=== PATIENT | female | born 1950 | race Caucasian/White ===

== ENCOUNTER 2023-01-14 09:30 | Outpatient (RCR) | payer MEDICARE, SELFPAY ==
--- NOTE | 2022-11-06 08:57 | HP.PTEVAL ---
Patient's Visit Information JENNIFER MELLO is a 72 year old F referred to Physical Therapy by ANOOP SINCLAIR with a diagnosis of CVA. Date of Evaluation: 11/05/22 Physical Therapist: Manjula Mejia DPT - Visit Plan Frequency: 2-3x /Week Duration: 4 Weeks Plan: Focus on functional mobility- ambulation, stairs and balance. LE and core strength/stabilization - Subjective Patient reports that she was fully I- drives a school bus and horses and she had a CVA Oct 06, 2022- Lives in [place]- called 911- spent a few days and then they sent her to a rehab hospital for 2.5 weeks and then they released her and is now living with daughter in [place] for rehab. Her daughter and her 6 kids who are little normally live with her and it was much too to go home too so she came here. Goal is to get back home- she sleeps in the basement with a single HR. Current residence 2 steps into the home but first floor set up. She is using a platform walker- she continues to make progress. She has the most issues with her right arm and leg- she has no pain. She has had a fall in the last week getting out of the shower- she did not hit her head but has a bruise on her right shoulder and hip. No N/T but just feels weak. She was in a rehab for 3 hours a day- PMHX: left TKR 2 years ago Meds: aspirin, atorvastatin, clopradogel, cyanocobalamin, lisopril, multivit - Objective Posture: FH, RS can correct but does not maintain. Gait: Walking into clinic with right platform walker and AFO on the right LE- she has decreased stance on the right LE. Ambulation with a FWW no change in gait pattern- Without AFO she is able to ambulate 50 feet without catching her toe. As she fatigues she has decreased step length and her foot drop increases. Stairs: asc/desc 8 with bilateral HR and CGA for safety. Transfers: performs all without assistance. HR/TR: able in sitting. ROM: WFL in all planes of the LE. Strength: Core: fair, Left: Hip: 4+/5, Knee: 5/5 Ankle: 5/5 Right: Hip: flexion: 4/5, Abd: 4/5, Add: 4+/5, IR/ER: 4/5, Extn: 4/5, Knee: 4+/5, Ankle: 3+/5. Flex: HS: moderate, Gastroc: moderate - Balance/Special Test Scores Functional Gait Assessment Score: 14 % Disability: 53.3400 Lower Extremity Functional Score: 10 TUG Test Time Seconds: 15 - Goals Goal 1:: Patient will be I with HEP and progression Goal Time Frame: 4-6 Weeks Goal 2:: Patient will ambulate >300 feet with LRD mod I Goal Time Frame: 4-6 Weeks Goal 3:: Patient will asc/desc 8 stairs recip with 1 HR Indep Goal Time Frame: 4-6 Weeks Goal 4:: Patient will not have to wear her AFO for normalized gait Goal Time Frame: 4-6 Weeks Goal 5:: Patient will report 80% improvement Goal Time Frame: 4-6 Weeks - Rehabilitation Potential Physical Therapy Diagnosis: Patient presents with hypomobility- she has decreased LE and core strength/stabilization, proprioception, flex and muscular endurance leading to decreased ability to perform ADL's. Rehabilitation Potential: Good - Anticipated Interventions Patient/Client Instruction: Educate patient on: Benefits of Fitness Program Therapeutic Exercise to Include: Strength training, Endurance training, Balance training, Coordination, Agility training, Body mechanics, Postural training, Flexibilty training, Gait and locomotor training, Neuromotor development, Dynamic Lumbar Stabilization, Scapular Strength/Stabilization For the Purpose of:: To improve ability to perform ADL's Thank you for the opportunity to evaluate your patient. For Medicare and Medicare HMO plans, please review the plan of care and approve it. It will need to be FAXED BACK to us at [phone] for Medicare purposes. For Medicare only, by signing this I certify the plan of care. Please let me know if there are questions or concerns regarding this plan of care. Physician Signature: Date:
--- NOTE | 2022-11-12 12:14 | HP.OTEVAL_ITS ---
Patient's Visit Information JENNIFER MELLO is a 72 year old F, referred to Occupational Therapy by ANOOP SINCLAIR, with a diagnosis of CVA right UE weakness. Date of Evaluation: 11/06/22 Occupational Therapist: Rupal Velasquez, OTR/Deisy, CHT - Subjective This 72 year old female was seen for OT eval with dx of CVA. pt states she noticed numb right UE and LE when she was at the barn taken care of her horses. called dtr and Emergency squad. Pt was admitted and tsf to rehab facility for about 2.5 weeks. Pt is right handed. pt currently living with local dtr. until she recovers and can return to her PLOF. pt motivated and would like to return home to care for her horses. - ADLs Comments: youngest dtr and he family live with pts. pt lives in basement of ranch home- 13 steps one railing on the right. has entry at ground level with [address] IND. IND with ADLS and IADls. [employer]. pt is currently living in [place] with other dtr to recover - ROM Shoulder: right shoulder flex 80* left WNL Elbow: right WNL slow but able to get to end range left WNL Forearm: right 65* left WNL Opposition: Kapandji opposition scale right 4 left 10 - Strength Shoulder: right 3+/5 left 5/5 Elbow: right 3+/5 left 5/5 Pediatrician Active Practice: right 10# left 35# Lateral Pinch: right unable left 6# Tripod Pinch: right unable 6# Strength Comments: pt demo with weakness of right UE limiting her IND with ADLs and IADLS - Sensation Sensation Comments: denies - In-Hand Manipulation Finger to Palm Translation: Moderate - Right, Normal - Left Palm to Finger Translation: Moderate - Right, Normal - Left Shift: Moderate - Right, Normal - Left - Stroke Specific Quality of Life Total SS-QOL Score: 115 - Quick DASH-Disab of Arm,Shoulder& Hand Quick DASH Score: 61.3625 - Goals Goal:: pt will demo a increase in right sweeping compound blender strength by 20# to increase pts ind. with ADLS and IADls by d.c. pt will demo the ability to lift 3# with right UE and simulate putting dishes away by d/c Goal:: pt will demo a increase in right shoulder ROM to 155* or greater to increase pts ind. with ADLS and IADLs by dc Goal:: pt will demo the ability to manipulate 10 coins in and out of hand IND for money mtg. by d/c. pt will demo legible writing to return to signing name IND by d,c Goal:: pt and family will report pts dressing at RADHA level by d/c Goal:: pt will demo understanding of walker placement for simulated kitchen tasks by d/c - Rehabilitation General Assessment: pt demo with weakness of right UE following a CVA pt limited with all ADLS and IADLs at this time and would benefit from skilled OT services 2-3x week for 8 weeks. pt and pts family agree to POC. Rehabilitation Potential: Good - Anticipated Interventions A/AAROM/PROM, Strengthening, Ergonomic Education, Fine Motor Coord/Koko, Neuro Reeducation, Education re assistive Equipment, Education re Diagnosis, Caregiver Training, Home Program - Visit Plan Frequency: 2-3x /Week Duration: 2 Months TEXT: Thank you for the opportunity to evaluate your patient. For Medicare and Medicare HMO plans, please review the plan of care and approve it. It will need to be FAXED BACK to us at [phone] for Medicare purposes. Please let me know if there are questions or concerns regarding this plan of care. Physician Signature: Date:
--- NOTE | 2022-12-04 13:17 | HP.PTREVAL ---
ANOOP SINCLAIR, It has been my pleasure to treat JENNIFER LANGE over the last 10 visits for CVA. Please see the progress note below for an update on the physical therapy plan of care! Subjective: Patient reports that she is getting better- walking on uneven ground, standing for long periods of time are still really hard. She is doing more bending over to hook the dog- but still struggles with balance. She feels that her legs are 30% better. She uses mostly a cane or hanging onto furniture during the days at home- when she goes out she uses her walker. No falls- She has not had any stumbles. Not using the platform walker and not using the AFO on the foot. Other than the shoe button and the slide on the front of the right foot. The glue isnt holding so she is planning to try another shoe she has at home. Objective/Function: Posture: FH, RS can correct but does not maintain. Gait: straight cane with verbal cues to continue to make big strides with the right LE- no loss of balance 300 feet Stairs: asc/desc 8 with bilateral HR without assistance. Recip with 1 HR SBA for safety. HR/TR: able in standing with UE A for balance. ROM: WFL in all planes of the LE. Strength: Core: fair, Left: Hip: 4+/5, Knee: 5/5 Ankle: 5/5 Right: Hip: flexion: 4/5, Abd: 4/5, Add: 4+/5, IR/ER: 4/5, Extn: 4/5, Knee: 4+/5, Ankle: 4/5. Flex: HS: moderate, Gastroc: moderate Plan Plan: 12/04/22: Continue with POC- 2-3x a week for 4 weeks to focus on HEP for strength at gym with family and balance and functional mobility in clinic- stairs with single HR for return home. Focus on functional mobility- ambulation, stairs and balance. LE and core strength/stabilization Balance/Gait/Functional tests - Balance/Special Test Scores Functional Gait Assessment Score: 14 % Disability: 53.3400 Lower Extremity Functional Score: 37 TUG Test Time Seconds: 15 Tug Test: <20 sec.=mostly independent Goals Goal 1:: Patient will be I with HEP and progression Goal Time Frame: 4-6 Weeks Goal 2:: Patient will ambulate >300 feet with LRD mod I Goal Time Frame: 4-6 Weeks Goal 3:: Patient will asc/desc 8 stairs recip with 1 HR Indep Goal Time Frame: 4-6 Weeks Goal 4:: Patient will not have to wear her AFO for normalized gait Goal Time Frame: 4-6 Weeks Goal 5:: Patient will report 80% improvement Goal Time Frame: 4-6 Weeks Anticipated Interventions Patient/Client Instruction: Educate patient on: Benefits of Fitness Program Therapeutic Exercise to Include: Strength training, Endurance training, Balance training, Coordination, Agility training, Body mechanics, Postural training, Flexibilty training, Gait and locomotor training, Neuromotor development, Dynamic Lumbar Stabilization, Scapular Strength/Stabilization For the Purpose of:: To improve ability to perform ADL's Please do not hesitate to contact me at [phone] by phone or if you have questions or concerns regarding this new plan of care! Sincerely, MACHO MckeonT
--- NOTE | 2022-12-29 12:24 | HP.PTREVAL ---
ANOOP SINCLAIR, It has been my pleasure to treat JENNIFER LANGE over the last 16 visits for CVA. Please see the progress note below for an update on the physical therapy plan of care! Subjective: She reports that she feels slower- she talked to her daughters about wanting to go back home. She makes all of her own meals and for breakfast/lunch and she is starting to take more responsibility. 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 Gait: without AD decreased stance on the right LE- with straight cane improved but does not perform full knee extension in stance phase pt reports from needing a TKR Stairs: asc/desc 8 with a single handrail- prefers desc step to secondary to pain in the right knee. HR/TR: able in standing with UE A for balance. ROM: WFL in all planes of the LE. Strength: Core: fair, Left: Hip: 4+/5, Knee: 5/5 Ankle: 5/5 Right: Hip: flexion: 4/5, Abd: 4+/5, Add: 5/5, IR/ER: 4+/5, Extn: 4/5, Knee: 4+/5, Ankle: 4/5. Flex: HS: moderate, Gastroc: moderate Plan Plan: 12/29/22: Cont 2x a week for 2 weeks to work towards indep with all mobility. 12/04/22: Continue with POC- 2-3x a week for 4 weeks to focus on HEP for strength at gym with family and balance and functional mobility in clinic- stairs with single HR for return home. Focus on functional mobility- ambulation, stairs and balance. LE and core strength/stabilization Balance/Gait/Functional tests - Balance/Special Test Scores Functional Gait Assessment Score: 14 % Disability: 53.3400 CATSIB Score (Max score 120 seconds): 120 Lower Extremity Functional Score: 37 TUG Test Time Seconds: 10.7 Tug Test: 20-30sec.=variable mobility Goals Goal 1:: Patient will be I with HEP and progression Goal Time Frame: 4-6 Weeks Goal Progress: Progressing Goal 2:: Patient will ambulate >300 feet with LRD mod I Goal Time Frame: 4-6 Weeks Goal Progress: Goal Met Goal 3:: Patient will asc/desc 8 stairs recip with 1 HR Indep Goal Time Frame: 4-6 Weeks Goal Progress: Goal Met Goal 4:: Patient will not have to wear her AFO for normalized gait Goal Time Frame: 4-6 Weeks Goal Progress: Goal Met Goal 5:: Patient will report 80% improvement Goal Time Frame: 4-6 Weeks Goal Progress: Progressing Anticipated Interventions Patient/Client Instruction: Educate patient on: Benefits of Fitness Program Therapeutic Exercise to Include: Strength training, Endurance training, Balance training, Coordination, Agility training, Body mechanics, Postural training, Flexibilty training, Gait and locomotor training, Neuromotor development, Dynamic Lumbar Stabilization, Scapular Strength/Stabilization For the Purpose of:: To improve ability to perform ADL's Please do not hesitate to contact me at [phone] by phone or if you have questions or concerns regarding this new plan of care! Sincerely, MACHO MckeonT
--- NOTE | 2023-01-02 10:52 | OTREVAL_ITS ---
ANOOP SINCLAIR, It has been my pleasure to treat JENNIFER LANGE over the last 18 visits for CVA right UE weakness. Please see the progress note below for an update on the occupational therapy plan of care! Subjective: pt arrives to OT states she has made gains with all her ADLs. pt states she is RADHA with dressing, Pt is RADHA with bathing. pt is returning to her home in [place]. This is the home she lives with her youngest dtr. pt is happy to return. Objective/Function: pt demo increase in right shoulder flexion from 80* to 155*. pt demo right elbow ROM WNL. pt demo with slight decrease in right forearm supination. pt demo full wrist and digit ROM. pt demo with slightly slower motor control compared to left. right undercover agent strength 15# increase from 10#. right lateral pinch 6# no change. MMT of right UE shoulder 4/5 increase from 3+/5. biceps 4+/5 increase from 3+/5. triceps 4/5 increase from 3+/5. pt has made great gains in her UB strength. pt demo the ability to write name this is improvement prior testing pts writing was not legible. Kapandji opposition scale right 10 left 10. 9 hole peg test. right 31.39 sec. left 21.35 sec. pt currently ambulating with straight cane with good ability- noted decrease right UE reciprocal swing with ambulation. pt has made great gains in her recovery from her CVA. pt will bee seen for 4 more OT sessions prior to moving back to her home with her youngest dtr. pt is happy to be returning home. Plan Frequency: 2x /Week Duration: 2 Weeks Visits in this POC: 4 more visits to ensure inclusive HEP Plan: will continue to transition pt to inclusive HEP. to include UB PRE and FMS. reciprocal arm patterns/ functional reach Goals - Goals Patient Goals: Regain Mobility, Use Hand/Wrist/Arm Normally Again, Be More Independent in ADLS Goal:: pt will demo a increase in right undercover agent strength by 20# to increase pts ind. with ADLS and IADls by d.c. pt will demo the ability to lift 3# with right UE and simulate putting dishes away by d/c Goal:: pt will demo a increase in right shoulder ROM to 155* or greater to increase pts ind. with ADLS and IADLs by dc Goal:: pt will demo the ability to manipulate 10 coins in and out of hand IND for money mtg. by d/c. pt will demo legible writing to return to signing name IND by d,c Goal:: pt and family will report pts dressing at RADHA level by d/c Goal:: pt will demo understanding of walker placement for simulated kitchen tasks by d/c Anticipated Interventions Anticipated Interventions: A/AAROM/PROM, Strengthening, Ergonomic Education, Fine Motor Coord/Koko, Neuro Reeducation, Education re assistive Equipment, Education re Diagnosis, Caregiver Training, Home Program Please do not hesitate to contact me at [phone] by phone or if you have questions or concerns regarding this new plan of care! Sincerely, Rupal Velasquez, OTR/L, CHT
--- NOTE | 2023-01-14 10:07 | HP.OTDCSUM ---
It has been my pleasure to treat JENNIFER LANGE under orders from ANOOP SINCLAIR, for the diagnosis of CVA right UE weakness for a total of 22 visit(s). Please see the following information for a summary of their discharge status. % Improvement: 70 Objective/Function: pt demo increase in right shoulder flexion from 80* to 155*. pt demo right elbow ROM WNL. pt demo with slight decrease in right forearm supination. pt demo full wrist and digit ROM. pt demo with slightly slower motor control compared to left. right video conference specialist strength 15# increase from 10#. right lateral pinch 6# no change. MMT of right UE shoulder 4/5 increase from 3+/5. biceps 4+/5 increase from 3+/5. triceps 4/5 increase from 3+/5. pt has made great gains in her UB strength. pt demo the ability to write name this is improvement prior testing pts writing was not legible. Kapandji opposition scale right 10 left 10. 9 hole peg test. right 31.39 sec. left 21.35 sec. pt currently ambulating with straight cane with good ability- noted decrease right UE reciprocal swing with ambulation. pt has made great gains in her recovery from her CVA. pt is D/C at this time with HEP to continue to make strength and FMS gains to recover from her CVA. Patient Goals: Regain Mobility, Use Hand/Wrist/Arm Normally Again, Be More Independent in ADLS Goal:: pt will demo a increase in right video conference specialist strength by 20# to increase pts ind. with ADLS and IADls by d.c. pt will demo the ability to lift 3# with right UE and simulate putting dishes away by d/c Goal:: pt will demo a increase in right shoulder ROM to 155* or greater to increase pts ind. with ADLS and IADLs by dc Goal:: pt will demo the ability to manipulate 10 coins in and out of hand IND for money mtg. by d/c. pt will demo legible writing to return to signing name IND by d,c Goal:: pt and family will report pts dressing at RADHA level by d/c Goal:: pt will demo understanding of walker placement for simulated kitchen tasks by d/c Plan: will continue to transition pt to inclusive HEP. to include UB PRE and FMS. reciprocal arm patterns/ functional reach Discharge Comments: pt was seen for 22 OT session. Therapy focused on AROM and strengthening of right UE to increase pts ind. with ADLS and IADLs. pt has made great gains with ROM and strength but continues to have deficits. pt at this time pt will be D/c with HEP and move back to [place] with her youngest dtr. Pt was advised if she feels after working on her HEP and no changes to contact her family and return to OT services in [place]. pt demo understanding and agree to POC. If there are questions or concerns regarding this patient's occupational therapy, please fell free to call me at [phone]. Thank you for the referral of this patient. Sincerely, Rupal Velasquez, OTR/L, CHT
--- NOTE | 2023-01-15 07:01 | HP.PTDCSUM ---
It has been my pleasure to treat JENNIFER LANGE referred by ANOOP SINCLAIR, with the diagnosis of CVA for a total of 21 visit(s). Discharge Date: Please see the following information for a summary of their discharge status. Subjective: Patient reports that she is 80% back to previous function prior to stroke- she feels like there is still improvement in endurance and move at a regular pace. She takes her cane on walks outside but is not using it in the house. She has been practicing stairs- and is doing them with one hand rail. Right is bad and needs replaced and that is a limiting factor. She is planning on going back to [place] at the end of the month before . She is planning to go to [facility] here but then will look into something when she gets home. She has no pain. Bilateral Back Pain Intensity (Out of 10): 0 % Improvement: 80 Objective/Function: Posture: fair throughout Gait: slightly antalgic- no AD- decreased knee extension on the right in stance phase- reports due to knee pain asc/desc 8 with a single handrail- prefers desc step to secondary to pain in the right knee. HR/TR: able in standing with UE A for balance. ROM: WFL in all planes of the LE. Strength: Core: fair, Left: Hip: 4+/5, Knee: 5/5 Ankle: 5/5 Right: Hip: flexion: 4+/5, Abd: 4+/5, Add: 5/5, IR/ER: 4+/5, Extn: 4+/5, Knee: 4+/5, Ankle: 4+/5. Flex: HS: moderate, Gastroc: moderate. Transfers: sit to stand without UE A Goal 1:: Patient will be I with HEP and progression Goal Progress: Progressing Goal 2:: Patient will ambulate >300 feet with LRD mod I Goal Progress: Goal Met Goal 3:: Patient will asc/desc 8 stairs recip with 1 HR Indep Goal Progress: Goal Met Goal 4:: Patient will not have to wear her AFO for normalized gait Goal Progress: Goal Met Goal 5:: Patient will report 80% improvement Goal Progress: Progressing Plan: 01/14/23: Discharge to I HEP- encouraged continuation of movement including endurance and gym exercises. 12/29/22: Cont 2x a week for 2 weeks to work towards indep with all mobility. 12/04/22: Continue with POC- 2-3x a week for 4 weeks to focus on HEP for strength at gym with family and balance and functional mobility in clinic- stairs with single HR for return home. Focus on functional mobility- ambulation, stairs and balance. LE and core strength/stabilization If there are questions or concerns regarding this patient's physical therapy, please feel free to call me at [phone]. Thank you for the referral of this patient. Sincerely, Manjula Mejia, DPT Balance/Gait/Functional tests - Balance/Special Test Scores Functional Gait Assessment Score: 14 % Disability: 53.3400 CATSIB Score (Max score 120 seconds): 120 Lower Extremity Functional Score: 43 TUG Test Time Seconds: 9.8 Tug Test: <10 sec.=free mobile
== END 2023-01-14 19:00 | disposition home or self-care (01) ==
LOC: OT 09:30
DX: I69.351 Hemiplegia and hemiparesis following cerebral infarction affecting right dominant side (principal)
CPT/HCPCS: 97110; 97112; 97116; 97162; 97164; 97166; 97530